=== PATIENT | male | born 1980 | race Asian ===

== ENCOUNTER 2016-10-31 12:26 | Emergency (ER) | payer BC, OTHER ==
[~2016-10-31] VITALS: Ht 172.7 cm; Wt 83.9 kg
--- NOTE | ~2016-10-31 | EKG ---
[place] [address] [facility] [place] [address] ELECTROCARDIOGRAM REPORT Name: THONYESTHER Amanda Room #: [facility]#: [id number] Admission: 10/31/16 Attend Phys: Discharge: 10/31/16 Date of : 82 Report #: [id number] THIS REPORT FOR: //name// [facility] ED Test Date: 2016-10-31 Test Time: 12:57:57 Pat Name: ESTHER BHANDARI Department: Room: Gender: M [employer]: Cm BURNETT : 1980 Requested By: Atif Gonzales Order Number: [id number] MD: Saúl Fernández Measurements Intervals [place] Rate: 88 P: 41 ND: 174 QRS: 34 QRSD: 117 T: 169 QT: 379 QTc: 459 Interpretive Statements Sinus rhythm Probable left atrial enlargement LVH with secondary repolarization abnormality Compared to ECG 06/26/2010 01:15:28 Left ventricular hypertrophy now present Nonspecific change in the ST anterior segments Electronically Signed On 11-01-2016 7:46:51 CDT by Saúl Fernández [email or web address] <ELECTRONICALLY SIGNED> By: Saúl Fernández MD, [facility] 11/01/16 [id number] [id number] Saúl Fernández MD, [facility] /EPI
[~2016-10-31 12:26] MED LIST: AMBIEN 10 MG TA10 MG PO; ASPIRIN325 PO; AZOR 5-20 MG T1 EACH; AZOR 5-20 MG T1 EACH PO; HYDROCODON-ACE1 EACH PO; LIPITOR20 MG PO; NORCO 5-325 TA1 EACH PO; NUMOISYN300 ML PO; PERCOCET 5-3251 EACH PO; PREVALITE PACKE1 PKT
[2016-10-31] MEDS ORDERED: LISINOPRIL-HCT1 EAC1 PO (12:40)
[2016-10-31 13:01] LABS: ABSOLUTE NEUTROPHILS 6.7 thou/uL (1.4-8.2); BASOPHILS 0.9 % (0.0-2.0); EOSINOPHILS 1.4 % (0.0-3.0); HEMATOCRIT 49.5 % (42.0-52.0); HEMOGLOBIN 16.9 gm/dL (14.0-18.0); LYMPHOCYTES 17.7 % (24.0-44.0); MCH 33.7 pg (26.0-34.0); MCHC 34.2 g/dL (28.0-37.0); MCV 98.6 fL (80.0-100.0); MONOCYTES 6.4 % (1.0-8.0); PLATELET COUNT 337 thou/uL (150-400); POLYS 73.6 % (36.0-66.0); RBC 5.02 mil/uL (4.50-6.00); RDW 13.5 % (10.5-14.5); WBC 9.1 thou/uL (4.0-11.0)
[2016-10-31 13:03] LABS: MANUAL DIFF NO
[2016-10-31 13:05] LABS: CALCIUM 9.1 mg/dL (8.5-10.1); CREATININE 1.7 mg/dL (0.7-1.3); POTASSIUM 3.8 mmol/L (3.5-5.1)
[2016-10-31 13:10] LABS: ALBUMIN 4.1 g/dL (3.4-5.0); TOTAL BILIRUBIN 0.6 mg/dL (<0.1-1.0); TOTAL PROTEIN 8.5 g/dL (6.4-8.2)
[2016-10-31 13:42] LABS: URINE BILIRUBIN NEGATIVE (Negative); URINE BLOOD NEGATIVE (Negative); URINE COLOR YELLOW; URINE GLUCOSE-RANDOM* NEGATIVE (Negative); URINE KETONES NEGATIVE (Negative); URINE LEUKOCYTES-REFLEX NEGATIVE (Negative); URINE PROTEIN (DIPSTICK) 1+ (Negative); URINE SPECIFIC GRAVITY 1.015 (1.003-1.035); URINE UROBILINOGEN 0.2 E.U./dl (0.2-1.0)
[2016-10-31 13:52] LABS: CRYSTALS None Seen /LPF (None Seen); HYALINE CASTS 0-3 Few /LPF (None Seen); SQUAMOUS 0-3 Few /LPF (0-3); URINE RBC None Seen /HPF (0-2); URINE WBC-REFLEX 0-5 Rare /HPF (0-5)
[2016-10-31 14:08] VITALS: BP 156/98
== END 2016-10-31 14:09 | disposition home or self-care (01) ==
LOC: ER 12:26
PROVIDERS: Emergency Medicine
DX: I10 Essential (primary) hypertension (principal); F17.210 Nicotine dependence, cigarettes, uncomplicated; Z90.49 Acquired absence of other specified parts of digestive tract

== ENCOUNTER → 2018-06-06 | Outpatient (CLI) | payer BC, OTHER ==
[~2018-06-06] MED LIST changes: +LISINOPRIL-HCT1 EAC1 PO
== END ==
LOC: ULTRA 09:30
DX: I10 Essential (primary) hypertension (principal)